=== PATIENT | male | born 1990 | race Caucasian/White ===

== ENCOUNTER 2021-06-25 21:48 | Emergency (ER) | payer OTHER, SELFPAY ==
--- NOTE | ~2021-06-25 | XR_ITS ---
XR knee LT min 4V 06/25/2021 22:36 INDICATION: Left knee pain PROCEDURE: 4 views left knee COMPARISON: No prior studies for comparison. FINDINGS: Fracture, dislocation or subluxation is not identified. No significant joint effusion. The soft tissues appear within normal limits. No foreign bodies are identified. IMPRESSION: 1: NO ACUTE BONE OR JOINT ABNORMALITY IDENTIFIED. Reviewed, dictated and finalized at location A. [employer]
[2021-06-25 21:53] VITALS: BP 140/91; PULSE 95; RESP 18; TEMP 36.4; O2SAT 96
--- NOTE | 2021-06-25 22:59 | ED.LOWEXIN ---
HPI - Extremity Injury (Lower) General Chief Complaint: Extremity Injury, Lower Stated Complaint: knee pain Time Seen by Provider: 06/25/21 22:53 Source: patient Mode of arrival: wheelchair Limitations: no limitations History of Present Illness HPI Narrative: Patient is a 30 yo male presenting for evaluation of left knee pain. Patient was playing football when he tried to swat the ball, jumped, and then had an opposing player hit him laterally in the left leg, causing force and popping to the left knee. Pain was immediate and is moderate to severe. Pt denies tingling or numbness. Pain is worsened with movement. He does endorse swelling and bruising. No head trauma or loss of conscious. No hip or ankle pain. No back pain. Related Data Allergies Allergy/AdvReac Type Severity Reaction Status Date / Time No Known Drug Allergies Allergy Other Verified 06/25/21 22:53 Review of Systems Review of Systems: CONSTITUTIONAL: Denies fever CARDIOVASCULAR: Denies chest pain RESPIRATORY: Denies cough or dyspnea. GASTROINTESTINAL: Denies abdominal pain SKIN: Denies rash MUSCULOSKELETAL: Denies back pain, reports left knee pain NEUROLOGIC: Denies headache [facility] Social History Social History (Updated 06/25/21 @ 23:02 by Jihan Perez MD) Smoking status: Never smoker Alcohol intake: never Substance use: never Gender identity (if verbalized by the patient): Male Exam Narrative: GENERAL: Awake, alert, conversant HEAD: Normocephalic, atraumatic. EYES: PERRLA and EOMI. ENT: Nares clear, no rhinorrhea or epistaxis. Mucous membranes moist. NECK: Supple. CHEST: No respiratory distress, breathing even and non labored HEART: Regular rate, sinus rhythm ABDOMEN:Non distended, non tender EXTREMITIES: Left knee: Decreased range of motion secondary to pain. Pt can actively flex and extend the knee. The patella is midline. There is edema present. Lateral and medial joint line tenderness present. There is a small abrasion overlying the knee. No laceration. No calf edema or tenderness. SKIN: Warm, dry, no rash. NEURO:No focal deficits. Alert and oriented x3 Course Vital Signs Vital signs: Vital Signs Temperature 36.4 C 06/25/21 21:53 Pulse Rate 95 06/25/21 21:53 Respiratory Rate 18 06/25/21 21:53 Blood Pressure 140/91 H 06/25/21 21:53 Pulse Oximetry 96 06/25/21 21:53 Temperature 36.4 C 06/25/21 21:53 Pulse Rate 95 06/25/21 21:53 Respiratory Rate 18 06/25/21 21:53 Blood Pressure 140/91 H 06/25/21 21:53 Pulse Oximetry 96 06/25/21 21:53 MDM - Extremity Injury (Lower) MDM Narrative Medical decision making narrative: Patient presenting for evaluation of left knee pain following injury during a football game this evening. At the time of assessment, ABCs are intact and vital signs are stable. Patient is mildly hypertensive, but is in quite a bit of pain secondary to the knee injury. On exam, patient is neurovascularly intact. There is no gross deformity. No pallor, paresthesia, no clinical findings of compartment syndrome. Patient with minimal active flexion and extension, there is some active range of motion but it does elicit pain. X-ray is reassuring. Most likely patient with soft tissue injury, this will require nonemergent, outpatient MRI. Patient was placed in a knee immobilizer, given crutches, pain medication. He was advised to rest, ice, elevate the extremity. Patient was then discharged home with family in stable condition. Differential Diagnosis Differential diagnosis: Likely acute internal derangement of knee and other (fracture, dislocation) Imaging Data Radiologist's impression: ITS Impressions Knee X-Ray 06/25/21 22:38 IMPRESSION: 1: NO ACUTE BONE OR JOINT ABNORMALITY IDENTIFIED. Discharge Plan Discharge Clinical Impression: Strain of knee and leg, left Patient Disposition: Home, Self-Care Condition: Stable Instructions: Knee Pain (ED) Additional Instruc
== END 2021-06-25 23:30 | disposition home or self-care (01) ==
PROVIDERS: Emergency Provider Emergency Medicine
DX: S86.912A Strain of unspecified muscle(s) and tendon(s) at lower leg level, left leg, initial encounter (principal); W50.0XXA Accidental hit or strike by another person, initial encounter; Y93.61 Activity, american tackle football
CPT/HCPCS: 73564; 99283

== ENCOUNTER 2021-09-25 00:42 | Day surgery (SDC) | payer OTHER, SELFPAY ==
[2021-09-16 08:57] VITALS: BMI 34.4
--- NOTE | 2021-09-16 09:05 | PC.NURSE ---
Report to the Outpatient Waiting Room, entrance under the green pavilion located off [facility], at time __0700_ on date _[id number]_. OR Time: _0900__. - You and your visitor will be asked a series of questions to screen for COVID 19 for your protection. - A mask is required within the hospital. Preoperative COVID Testing Requirements: No COVID Test needed if: (proof is required; if not received patient will have Rapid Test prior to entry) - Patient has received COVID Vaccine at least 14 days prior to procedure date or - Patient has positive COVID test result within last 90 days of surgery date. COVID Test needed if above criteria is not met If not COVID vaccinated a COVID test must be conducted within 72 hours of surgery and patient is asked to isolate self from time of testing until procedure. You will go to the [facility] for your COVID testing. The [facility] site is located at the corner of [address] from [facility]. You will only be called if COVID results are positive and your surgeon may reschedule your elective surgery date. Patients may have clear liquids (water, carbonated beverages, clear teas, apple juice) until 3 hours prior to surgery with a maximum of 20 ounces. - No food from midnight until time of surgery - Infants may have breast milk until 4 hours before surgery, formula 6 hours prior to surgery. - Children will be allowed to drink immediately following surgery. If applicable, please bring a bottle or sippy cup to assist with drinking. Juice, water, soda, and popsicles are readily available. For infants on formula, please bring formula the day of surgery. Pacifiers are allowed. Take the following medications with a SIP of water the morning of surgery: Medications to discontinue per physician Date to take last dose Please no make-up, nail maltese, hairspray, perfume, deodorant, or body powder the day of surgery. No jewelry (including any body piercings) or valuables the day of surgery, leave them at home. Please take a shower or bath the night before, or the morning of, surgery with an antibacterial soap. Wear comfortable, loose fitting clothing. Children are encouraged to wear pajamas. - Jewelry must be removed prior to entering the operating room. Rings and piercings that are not removed may be cut off. - The hospital will not accept responsibility for valuables. - Please leave all valuables, including medications, at home the day of surgery. If you are going home after surgery, a licensed jinriksha driver must drive you home. - NO public transportation without another adult. - We recommend that an adult stay with you for 24 hours following discharge. - We also recommend that you do not drive, make important decision, drink alcoholic beverages, or take any drugs that were not prescribed by your health care provider for at least 24 hours after your discharge time. For Pediatric surgeries, we recommend two adults accompany the child home (only one inside the building at this time). One visitor will be allowed to accompany the patient into the hospital. Patients visitor will be instructed to remain with patient at all times or leave the building. We will allow the visitor to come back to the postoperative area when patient is ready. Follow any additional instructions given to you from your surgeon. Telephone instructions given to ___Patient and asked if any additional questions and then verbalized understanding. Patient advised to call surgeon office or pre surgery nurse liaison [phone] if any additional questions.
--- NOTE | 2021-09-24 13:35 | WPDANESEPPF ---
Anes - Initial Pre Proc Eval Procedure: Operation Date: 09/25/21 07:30 Proposed Procedures p Left Knee Anterior Cruciate Ligament Reconstruction with Possible Medial Meniscus Repair - Nishant Stern MD Date/Time: 09/24/21 13:35 Surgeon: Nishant Stern MD Pre Op Diagnosis: left knee acl rupture Patient Data Age: 30 Gender: M Height: 1.78 m Weight: 109 kg Allergies Allergy/AdvReac Type Severity Reaction Status Date / Time No Known Drug Allergies Allergy Other Verified 09/25/21 06:31 Patient hx anesthesia problems: none Family hx anesthesia problems: none Results Review: All pre-operative results and documents have been reviewed as part of the pre-operative evaluation. [facility] Past Medical History Medical History (Updated 08/07/21 @ 10:11 by Angelica Fowler MA) Left knee pain Rupture of anterior cruciate ligament of left knee Surgical History Surgical History S/P partial lobectomy of lung 1993 Social History Social History (Updated 08/07/21 @ 10:05 by Angelica Fowler MA) Smoking status: Never smoker Alcohol intake: current Substance use: current Substance use type: marijuana Other substance usage details: 2 or 3 pinch hitters a day. Living arrangements: with family Additional occupation/education comments: [employer] Gender identity (if verbalized by the patient): Male Spiritual care concerns: No Anes - Eval Final PreProcedure Day of Procedure 09/24/21 13:35 Results Review: All pre-operative results and documents have been reviewed as part of the pre-operative evaluation. Informed Consent: The patient's anesthetic plan and its attendant risks and benefits were discussed with the patient/family/POA. Questions were solicited and answers provided to the satisfaction of the patient/family/POA.
[2021-09-25] VITALS (10 sets, daily range): BP systolic 130–160; BP diastolic 75–88; PULSE 76–93; RESP 16; TEMP 36.6–36.8; O2SAT 94–99
[2021-09-25] MEDS: CELECOXIB 200 MG CAPSULE PO (07:00)
[2021-09-25] MEDS: ACETAMINOPHEN 500 MG TABLET 1000 MG PO (07:00)
[2021-09-25] MEDS: LACTATED RINGERS 1,000 ML 30 ML IV CONT ×3 (07:00→11:32)
--- NOTE | 2021-09-25 07:23 | PM.IMHP ---
H&P: HPI History of Present Illness Date/Time: 09/25/21 07:23Pt presents with Left knee pain after a football injury 06/25/21 ([id number]). Pt states he was hit on the lateral aspect of the left knee. He heard 2 pops, followed by intense pain. He was seen in our office and underwent an MRI which reported a ruptured ACL and medial meniscus tear. He has been participating in PT @ [facility] in order to improve his ROM (>125 degrees flexion) in preparation for surgical repair. Per PT progress note, pt's ROM is now 0-127 degrees. He is no longer immobilized and is not ambulating with AD. Currently, his pain is very minimal. He is ambulating with a slight limp, however, his pain is much improved. He is able to do most daily activities, without issue. Chief Complaint: LEFT KNE PAIN Review of Systems Review of Systems: All systems reviewed & are unremarkable except as noted in HPI and below Constitutional: Constitutional: Reports no additional constitutional complaints Eyes: Eyes: Reports no additional eye complaints Cardiovascular: Cardiovascular: Reports no additional cardiovascular complaints Genitourinary: Genitourinary: Reports no additional male genitourinary complaints Neurologic: Reports system reviewed and no additional complaints, except as documented [facility] Past Medical History Medical History Left knee pain Rupture of anterior cruciate ligament of left knee Surgical History Surgical History S/P partial lobectomy of lung 1993 Social History Social History Smoking status: Never smoker Alcohol intake: current Substance use: current Substance use type: marijuana Other substance usage details: 2 or 3 pinch hitters a day. Living arrangements: with family Additional occupation/education comments: [employer] Gender identity (if verbalized by the patient): Male Spiritual care concerns: No Meds Home Medications and Allergies Allergies Allergy/AdvReac Type Severity Reaction Status Date / Time No Known Drug Allergies Allergy Other Verified 09/25/21 06:31 Exam Narrative: GENERAL: Awake, alert, conversant HEAD: Normocephalic, atraumatic. EYES: PERRLA and EOMI. ENT: Nares clear, no rhinorrhea or epistaxis. Mucous membranes moist. NECK: Supple. CHEST: No respiratory distress, breathing even and non labored HEART: Regular rate, sinus rhythm ABDOMEN:Non distended, non tender EXTREMITIES: Left knee: Decreased range of motion secondary to pain. Pt can actively flex and extend the knee. The patella is midline. There is edema present. Lateral and medial joint line tenderness present. There is a small abrasion overlying the knee. No laceration. No calf edema or tenderness. SKIN: Warm, dry, no rash. NEURO:No focal deficits. Alert and oriented x3 Extrem: General: capillary refill normal, no clubbing and no cyanosis Right lower extremity: normal to inspection, full ROM, normal capillary refill and knee Details: normal to inspection, normal ROM and knee ligament exam normal; no tenderness, no swelling, Abby's Test not performed, no abrasions, no lacerations, no ecchymosis, no crepitus, no deformity and no unusual warmth; no cyanosis and no edema Left lower extremity: normal to inspection, normal capillary refill, knee Details: abnormal to inspection Details: other (mild effusion), tenderness Location: of the medial joint line, swelling, abnormal ROM Details: pain with active ROM, pain with passive ROM and with range as follows (0 to 130), knee ligament exam abnormal Details: anterior drawer test Details: laxity noted and Bertha's test (MILDLY POSITIVE); posterior drawer test not performed, valgus stress test not performed and varus stress test not performed, Abby's Test Details: negative medially and negative laterally, crepitus Location: a
--- NOTE | 2021-09-25 07:26 | WPDHPUPDATE1 ---
History and Physical Update Update Date/Time: 09/25/21 07:26 History and Physical has been reviewed, including an updated exam of the patient. There are NO changes in the patient's condition. Risks, benefits, and alternatives have been discussed and questions answered. Patient agrees to proceed with procedure.
[2021-09-25] MEDS: ceFAZolin 2 GM/D5W 50 ML 2 GM/50 ML BAG IVPB (07:34)
[2021-09-25] MEDS: BUPIVACAINE HCL 0.5% PF 30 ML VIAL INFILTRATE (08:38)
[2021-09-25] MEDS: ONDANSETRON INJ 4 MG/2 ML VIAL IV PUSH (11:06)
[2021-09-25] MEDS: fentaNYL CITRATE INJ (*CRX) 100 MCG/2 ML VIAL 25 MCG IV PUSH ×2 (11:30→11:47)
[2021-09-25] MEDS: diphenhydrAMINE HCl INJ 50 MG/ML VIAL 12.5 MG IV PUSH (11:30)
[2021-09-25] MEDS: oxyCODONE HCL (*CRX) 5 MG TAB IR PO (11:50)
--- NOTE | 2021-09-25 12:35 | P.OP_ITS ---
Procedure Note - Detailed Date of Procedure 09/25/21 Pre-op Diagnosis left knee acl rupture Post-op Diagnosis Same Procedure Performed LEFT ACL RECONSTRUCTION Surgeon Nishant Stern MD Anesthesia General Description of Procedure PATIENT WAS TAKEN TO THE OR. GENERAL ANESTHESIA WAS INDUCED. THE LEFT KNEE WAS TAKEN THROUGH A RANGE OF MOTION AND A PIVOT SHIFT TEST WAS PREFORMED AND THIS WAS POSITIVE. A LACHMANS TEST AND ANTERIOR DRAWER TESTS WERE ALSO PREFORMED AND BOTH SHOWED LAXITY OF THE ACL. THE LEFT LEG WAS PREPPED AND DRAPED STERILE. TROCARS WERE PLACED IN THE USUAL FASHION. CAMERA WAS INTRODUCED. THERE WAS MODERATE CHONDROMALACIA TO THE PATELLA FEMORAL JOINT. MOST OF THE LESION WAS ON THE PATELLAR SURFACE THERE WAS A LOT OF SYNOVITIS IN THIS COMPARTMENT WELL. THE MEDIAL COMPARTMENT SHOWED MILD CHONDROMALACIA TO THE MED FEMORAL CONDYLE. THER WAS NO TEAR TO THE MEDIAL MENISCUS. NEXT THE ACL WAS IDENTIFIED AND FOUND TO BE COMPLETELY TORN. THE LATERAL MENISCUS WAS NOT TORN. THE LATERAL COMPARTMENT HAD NO CHONDROMALACIA. THE ACL REMNANTS WERE THEN THEN DEBRIDED UNTIL THE PCL WAS IDENTIFIED AND THE SUPERIOR LATERAL NOTCH WAS IDENTIFIED. A NOTCH PLASTY WAS PREFORMED UNTIL THE OVER THE TOP POSITION WAS SEEN. A MEDIAL INCISION WAS MADE MEDIAL TO THE TIBIAL TUBERCLE AND DISSECTION CONTINUED DOWN TO BONE. A TIBIAL ACL GUIDE WAS PLACE UP AGAINST THE PCL AND WAS SET AT 55 DEG POSITION. A GUIDE PIN WAS DRILLED THROUGH THE GUIDE EXITING JUST ANTERIOR TO THE PCL STUMP. A 9 MM TIBIAL TUNNEL WAS DRILLED. A #7 BACK WALL GUIDE WAS PLACED OVER THE GUIDE PIN AT THE 2 O'CLOCK POSITION ON THE FEMUR. A 9 MM FEMORAL TUNNEL WAS DRILLED TO 25 MM. AN ALLOGRAFT ATTACHED TO A TIGHT ROPE SYSTEM. THE ALLOGRAFT WAS PASSED THROUGH THE TIBIAL AND FEMORAL TUNNELS. THE TIGHT ROPE WAS THEN TIGHTENED AND THE ENDO BUTTON WAS SECURED OVER THE SUPERIOR LATERAL FEMORAL CORTEX. WITH THE KNEE AT 30 DEG OF FLEXION AND TENSION ON THE TIBIAL SIDE OF THE ALLOGRAFT, A 25 MM BY 8 MM TISSUE INTERFERENCE SCREW WAS PLACED IN THE TIBIAL TUNNEL OVER A GUIDE WIRE. THE SCREW HAD AN EXCELLENT BITE. THE KNEE WAS TAKEN THROUGH A RANGE OF MOTION AND THE ACL WAS VERY STABLE. SYNOVECTOMY WAS PREFORMED IN THE PATELLO FEMORAL JOINT AND IN THE MEDIAL COMPARTMENT. THEN THE PATELLA AND TROCHLEA UNDERWENT CHONDROPLASTY. THE SURFACE WAS SMOOTH AND THE PATELLA TRACKED WITHOUT TILT. THE INSTRUMENTS WERE REMOVED AFTER THOROUGH IRRIGATION OF THE KNEE JOINT. THE WOUNDS WERE WASHED. THE TROCAR WOUNDS WERE APPROXIMATED WITH 4-0 NYLON. THE TIBIA WOUND WAS APPROXIMATED WITH 0 VICRYL, 2- 0 VICRYL AND 3-0 QUILL SUTURE. THE WOUNDS WERE WASHED. DERMABOND AND THEN A STERILE DRESSING WAS APPLIED. A BRACE WAS PLACED.PATIENT WAS EXTUBATED. Estimated Blood Loss -30.0 Drains No Complications No immediate complications Condition Stable Disposition PACU
== END 2021-09-25 12:55 | disposition home or self-care (01) ==
PROVIDERS: Visit Provider Orthopaedic Surgery
PROC: (CPT 29888; principal; 2021-09-25 07:30)
DX: S83.512A Sprain of anterior cruciate ligament of left knee, initial encounter (principal); W22.8XXA Striking against or struck by other objects, initial encounter; M22.42 Chondromalacia patellae, left knee; M25.562 Pain in left knee; Y93.61 Activity, american tackle football; F12.90 Cannabis use, unspecified, uncomplicated; Z90.2 Acquired absence of lung [part of]
CPT/HCPCS: 29888; A9270; C1713; J0690; J1100; J1170; J1200; J2250; J2405; J2704; J3010; J7120; L1830